=== PATIENT | male | born 2000 | race Caucasian/White ===

== ENCOUNTER 2019-05-05 13:32 | Emergency (ER) | payer SELFPAY ==
--- NOTE | ~2019-05-05 | CT_ITS ---
EXAMINATION: CT abdomen pelvis wo con DATE: 05/05/2019 15:49 INDICATION: Right upper quadrant abdominal pain and hematuria. TECHNIQUE: Computed tomography (CT) of the abdomen and pelvis was performed without intravenous contr ast. Automated exposure control and iterative reconstruction technique were employed. The dose-length product was 362.69 mGy-cm. COMPARISON: None FINDINGS: Minimal dependent atelectasis in the bilateral lower lobes. Heart size is normal. No pericardial or p leural effusion. There is suggestion of possible periportal edema versus mild intrahepatic biliary du ctal dilation however assessment is limited on noncontrast imaging. Liver is otherwise normal. Gallbl adder, spleen, pancreas and bilateral adrenal glands are normal. 2 mm nonobstructing stone at the upp er pole calyx of the left kidney. Mild caliectasis at the upper pole of the right kidney without yessi k hydronephrosis right-sided nephrolithiasis. No hydroureter or stones seen along the course of urete rs. Partially decompressed bladder is normal. Mild to moderate scattered diverticulosis with descendi ng and proximal sigmoid colon predominance without adjacent from 3 change to suggest diverticulitis. Small bowel and appendix are normal. No free intraperitoneal gas or fluid. No pathologically enlarged abdominal or pelvic lymphadenopathy. Schmorl's nodes along multiple endplates in the lumbar and lowe r thoracic spine. There are a few scattered bone islands in the pelvis and at L3. IMPRESSION: 1. 2 mm nonobstructing left renal stone. Mild caliectasis the upper pole of the right kidney but with out evident right-sided urolithiasis. 2. Suggestion of periportal edema and/or mild intrahepatic ductal or ductal dilation however evaluati on is limited on noncontrast imaging. Reviewed, dictated and finalized at location A. IMPRESSION: 1. 2 mm nonobstructing left renal stone. Mild caliectasis the upper pole of the right kidney but without evident right-sided urolithiasis. 2. Suggestion of periportal edema and/or mild intrahepatic ductal or ductal dil ation however evaluation is limited on noncontrast imaging.
--- NOTE | ~2019-05-05 | US_ITS ---
EXAMINATION: US right upper quadrant DATE: 05/05/2019 14:25 INDICATION: One day of right upper quadrant abdominal pain with nausea TECHNIQUE: Multiple grayscale and Doppler ultrasound images of the abdomen were obtained. COMPARISON: None FINDINGS: The pancreatic head and body are normal in appearance. The pancreatic tail is not visualized. Liver has normal echogenicity and contour, with a smooth surface. No liver lesion identified. Suggestion of mild intrahepatic biliary ductal dilation. Portal venous flow was seen in the hepatopetal, normal di rection and has normal Doppler waveform. The gallbladder is normal in appearance. There is no cholel ithiasis. The common bile duct measures 3-4 mm, which is normal. Sonographic Jimenez sign was reported as negative by the science writer. Visualized portion of the right kidney demonstrates normal contour, echogenicity and no hydronephrosis. IMPRESSION: 1. Suggestion of mild intrahepatic biliary ductal dilation but with no evident cholelithiasis and wit h normal caliber common bile duct. Correlate with liver function tests. Reviewed, dictated and finalized at location A. IMPRESSION: 1. Suggestion of mild intrahepatic biliary ductal dilation but with no evident cholelithiasis and with normal caliber common bile duct. Correlate with liver f unction tests.
[2019-05-05 13:38] VITALS: BP 154/120; PULSE 88; RESP 16; TEMP 37.4; O2SAT 99
--- NOTE | 2019-05-05 13:41 | ED.ABDPAIN ---
HPI - Abdominal Pain General Chief Complaint: Abdominal Pain Stated Complaint: abdominal pain Time Seen by Provider: 05/05/19 13:38 Source: patient Mode of arrival: ambulatory Limitations: no limitations History of Present Illness HPI narrative: A 19 y/o male presents to the ED with c/o sharp upper ABD pain. Pt states that the severe upper ABD pain started yesterday and has been constant since. He notes that the ABD pain is aggravated with movement and is a pressure and cramping feeling. Pt reports nausea, subjective fever, chills, sweats, and poor appetite, but denies vomiting, dysuria, hematuria, and diarrhea. He adds that the ABD pain is alleviated with NyQuil and hot showers. Pt has a PMHx of kidney stones and urethral stent. MD elicited complaint: abdominal pain (Upper) Pertinent past history: kidney stones Onset (ago): day(s) (1) Pain Consistency: constant Location: LUQ and RUQ Quality: cramping, sharp and other (Pressure) Exacerbating factors: movement Relieving factors: medication (NyQuil) and other (Hot shower) Associated symptoms: nausea, fever (Subjective), chills and other (Sweats, poor appetite) Related Data Allergies Allergy/AdvReac Type Severity Reaction Status Date / Time ibuprofen [From Motrin] Allergy Swelling Verified 05/05/19 13:40 Review of Systems Review of Systems: All systems reviewed & are unremarkable except as noted in HPI and below Constitutional: Constitutional: Reports chills, Reports fever(s) (Subjective), Reports poor appetite and Reports other (Sweats) Gastrointestinal: Gastrointestinal: Reports abdominal pain (Upper), Denies diarrhea, Reports nausea and Denies vomiting Genitourinary: Genitourinary: Denies hematuria and Denies dysuria PMFSH Past Medical History Medical History (Updated 05/05/19 @ 16:50 by Rosalba Arnold MD) Eczema Kidney stones Surgical History Surgical History (Updated 05/05/19 @ 13:44 by Elle Paredes) History of urethral stent Social History Social History (Updated 05/05/19 @ 13:51 by Elle Paredes) Smoking status: Never smoker Gender identity (if verbalized by the patient): Male Exam Const: General: cooperative, no acute distress and alert Nutritional Appearance: well nourished Orientation/consciousness: patient oriented x3 Limitations: no limitations HENMT: Mouth: Yes lip normal and Yes moist mucous membranes Resp: Effort & Inspection: normal respiratory effort Auscultation: clear to auscultation bilaterally Cardio: Rate: regular rate Rhythm: regular rhythm GI: GI Palp: Yes Soft to palpation, Yes Tenderness to palpation present (GI) (RUQ), No Guarding due to palpation present (GI) and No Rebound tenderness present Auscultation: normal bowel sounds Skin: General skin exam: normal color Neuro: General: patient oriented x3 Cognition (Neuro): normal cognition Speech: normal speech Extrem: General: normal to inspection, full ROM and no clubbing, cyanosis or edema Psych: Mental Status: mental status grossly normal Affect: normal affect Attitude: cooperative Course Course Emergency Course: Patient well appearing in the emergency department and nontoxic. Feels better after medications. Ultrasound and CT show evidence of intrahepatic biliary duct dilatation, but labs are normal. Case discussed with gastroenterology who will follow-up and arrange for MRCP for further evaluation. Discussed with patient test results, diagnosis, and treatment/follow-up plan. Consultations Consultation #1: Discussed case with urologist, Dr. Huynh. Will have patient follow-up in the office for IRCP. Date: 05/05/19 Time: 16:38 Vital Signs Vital signs: Vital Signs Temperature 99.3 F 05/05/19 13:38 Pulse Rate 88 05/05/19 13:38 Respiratory Rate 16 05/05/19 13:38 Blood Pressure 154/120 H 05/05/19 13:38 Pulse Oximetry 99 05/05/19 13:38 Temperature 99.3 F 05/05/19 13:38 Pulse Rate 88 05/05/19 13:38 Respiratory Rate 16 05/05/19
[2019-05-05 14:00] LABS: Basophils Absolute Auto 0.1 K/mm3 (0.0-0.1); Basophils Percent Auto 0.7 % (0.2-1.2); Eosinophils Percent Auto 0.2 % (0-4.4); Hematocrit 51.7 % (42.0-52.0); Hemoglobin 16.8 g/dL (14.0-18.0); Immature Granulocyte Absolute 0.04 K/mm3 (0.00-0.031); Immature Granulocyte Percent A 0.4 % (0-0.5); Lymphocytes Percent Auto 13.1 % (18.3-44.2); Mean Corpuscular HGB Conc 32.5 g/dl (32-36); Mean Corpuscular Hemoglobin 27.8 pg (26-34); Mean Corpuscular Volume 85.5 fl (80-100); Monocytes Absolute Auto 1.6 K/mm3 (0.1-0.6); Monocytes Percent Auto 14.7 % (2.6-8.5); Neutrophils Absolute Auto 7.6 K/mm3 (1.3-6.7); Neutrophils Percent Auto 70.9 % (45.5-73.1); Platelet Count Result 189 k/mm3 (150-375); Red Blood Count 6.05 M/mm3 (4.6-6.20); Red Cell Distribution Width 13.1 % (11.5-14.5); White Blood Count 10.7 K/mm3 (4.5-10.0)
[2019-05-05] MEDS: DICYCLOMINE HCL INJ 20 MG/2 ML VIAL IM (14:08)
[2019-05-05] MEDS: LACTATED RINGERS 1,000 ML 999 ML IV CONT (14:10)
[2019-05-05] MEDS: ONDANSETRON INJ 4 MG/2 ML VIAL IV PUSH (14:10)
[2019-05-05 14:12] LABS: Alanine Aminotransferase 24 U/L (4-50); Albumin Level 4.9 g/dL (3.5-5.1); Alkaline Phosphatase 59 U/L (38-126); Aspartate Amino Transferase 24 U/L (17-59); Bilirubin,Total 0.8 mg/dL (0.2-1.3); Blood Urea Nitrogen 7 mg/dL (9-20); Calcium 9.6 mg/dL (8.4-10.2); Carbon Dioxide 29 mmol/L (22-30); Chloride 98 mmol/L (98-107); Estimated CRCL calculation 94 ml/min; Estimated Glomerular Filt Rate > 60; Glucose 106 mg/dL (75-110); Lipase 35 U/L (23-300); Potassium 3.6 mmol/L (3.4-5.0); Sodium 138 mmol/L (137-145)
[2019-05-05 14:56] LABS: Add Urine Microscopic? YES; Appearance Urine Clear (Clear); Bilirubin Urine Negative (Negative); Blood Urine 1+ (Negative); Color Urine Yellow (Yellow); Glucose Urine UA Negative (Negative); Ketones Urine Trace mg/dL (Negative); Leukocyte Esterase Ur Negative LEU/UL (Negative); Mucus Urine Rare /lpf; Nitrate Urine Negative (Negative); Protein Urine Negative (Negative); Squamous Epithelial Cell Urine Rare /hpf (Few); WBC Urine 0-3 /hpf
[2019-05-05 17:00] VITALS: BP 132/75; PULSE 72; RESP 16; O2SAT 99
== END 2019-05-05 17:04 | disposition home or self-care (01) ==
PROVIDERS: Emergency Provider Emergency Medicine
DX: K82.8 Other specified diseases of gallbladder (principal); R10.11 Right upper quadrant pain; Z87.442 Personal history of urinary calculi
CPT/HCPCS: 36415; 74176; 76705; 80053; 81001; 83690; 85025; 96361; 96372; 96374; 96375; 99284; J0131; J0500; J2405; J7120